=== PATIENT | female | born 1930 | race Caucasian/White ===

== ENCOUNTER → 2020-03-08 | Outpatient (CLI) | payer MEDICARE, OTHER | LOC: M LABSMTC 09:47 | PROVIDERS: ATTEND Internal Medicine Cardiovascular Disease | DX: Z20.828 Contact with and (suspected) exposure to other viral communicable diseases (principal) | CPT/HCPCS: C9803; U0003 ==

== ENCOUNTER 2020-07-05 12:15 | Emergency (ER) | payer MEDICARE, OTHER ==
[~2020-07-05] VITALS: Ht 162.6 cm; Wt 77.3 kg
[2020-07-05 13:14] LABS: BASO % 0.5 % (0.0-1.0); EOS # 0.2 10^3/uL (0.0-0.5); EOS % 3.4 % (0.0-3.0); HEMATOCRIT 38.3 % (36.0-47.0); HEMOGLOBIN 11.7 g/dl (12.0-15.5); LYMPH # 1.1 10^3/uL (1.5-5.0); LYMPH % 17.9 % (24.0-44.0); MEAN CORPUSCULAR HEMOGLOBIN 27.1 pg (27.0-33.0); MEAN CORPUSCULAR HGB CONC 30.5 g/dl (32.0-36.5); MEAN CORPUSCULAR VOLUME 88.7 fl (80.0-96.0); MONO # 0.7 10^3/uL (0.0-0.8); NEUTROPHILS # 4.1 10^3/uL (1.5-8.5); NEUTROPHILS % 66.9 % (36.0-66.0); PLATELET COUNT, AUTOMATED 277 10^3/uL (150-450); RED BLOOD COUNT 4.32 10^6/uL (4.00-5.40); WHITE BLOOD COUNT 6.2 10^3/uL (4.0-10.0)
[2020-07-05 13:30] LABS: INR 1.2; PROTHROMBIN TIME 15.5 SECONDS (12.5-14.3)
[2020-07-05 13:31] LABS: PARTIAL THROMBOPLASTIN TIME 47.5 SECONDS (24.2-38.5)
--- NOTE | 2020-07-05 13:36 | REP ---
INDICATION: CHEST PAIN COMPARISON: None. TECHNIQUE: Portable AP view of the chest FINDINGS: Cardiomegaly is appreciated. Lung clancy demonstrate diffusely increased markings which may reflect pulmonary vascular congestion. Blunting to the right costophrenic angle suggests small pleural effusion. No focal consolidation. No pneumothorax. Skeletal structures demonstrate age-related osteopenia and degenerative changes. IMPRESSION: Cardiomegaly and findings to suggest pulmonary vascular congestion/early CHF including small right pleural effusion. <Electronically signed by Adrian Rinaldi > 07/05/20 [id number]
[2020-07-05] MEDS ORDERED: ISOVUE-370 76% 100ML VIAL As Ordered ONE (13:44)
[2020-07-05 14:01] LABS: ALBUMIN 3.9 GM/DL (3.2-5.2); ALT/SGPT 15 U/L (12-78); BILIRUBIN,DIRECT 0.3 MG/DL (0.0-0.2); BILIRUBIN,TOTAL 0.8 MG/DL (0.2-1.0); CK-MB VALUE MASS 1.4 NG/ML (<3.6); CPK CREATINE PHOSPHOKINASE 46 U/L (26-192); LIPASE 153 U/L (73-393); MB/CK RELATIVE INDEX 3.04 (< OR =4); NT-PRO BNP 4341 PG/ML (<450); THYROID STIMULATING HORMONE 0.831 uIU/ML (0.358-3.740); TOTAL PROTEIN 6.9 GM/DL (6.4-8.2); TROPONIN I < 0.02 NG/ML (< 0.10)
--- NOTE | 2020-07-05 14:11 | REP ---
INDICATION: fall injury; head and chest pain; pain to left ant chest. COMPARISON: None. TECHNIQUE: Helical scanning is acquired. 5 mm axial images were reformatted. Coronal MPR images were generated. FINDINGS: Bone window settings demonstrate an intact bony calvarium. There is no evidence of skull fracture or incidental bony calvarial lesion. The visualized paranasal sinuses appear clear. No intraorbital abnormality is seen. On soft tissue window setting images; the lateral, third, and fourth ventricles are normal in size and position. Arteaga-white differentiation pattern is normal above and below the tentorium. There are is no evidence of intracranial hemorrhage. No mass, edema, infarction, or midline shift is seen. No extra-axial fluid collection is appreciated. There is fairly extensive vascular calcification in the distal internal carotid arteries. There is mild generalized volume loss. Small vessel atherosclerotic changes are noted in the supratentorial brain. IMPRESSION: Generalized volume loss and vascular calcification. Small vessel changes. No acute intracranial abnormality.. <Electronically signed by Yong An > 07/05/20 [id number]
--- NOTE | 2020-07-05 14:12 | REP ---
INDICATION: fall injury; head and chest pain; pain to left ant chest COMPARISON: None TECHNIQUE: Axial contrast enhanced images from the thoracic inlet to the upper abdomen with coronal and sagittal reformations using 75 ml Isovue 370 intravenous contrast material. This CT examination was performed using the following dose reduction techniques: Automated exposure control, adjustment of mA and/or kv according to the patient's size, and use of iterative reconstruction technique. FINDINGS: Cardiomegaly is appreciated with small pericardial effusion and small right pleural effusion partially identified within the apical portion of the major fissure with trace right basilar atelectasis. Further evaluation of the mediastinum demonstrates atherosclerotic changes to the thoracic aorta and coronary arteries without aortic aneurysm or dissection. No significant adenopathy. Musculoskeletal structures demonstrate age-related changes without acute osseous abnormality. Limited upper abdomen demonstrates normal bilateral adrenal glands and 2 cm left renal cyst. IMPRESSION: 1. Cardiomegaly with small amount of pericardial fluid. 2. Small right pleural effusion and minimal right basilar atelectasis. <Electronically signed by Adrian Rinaldi > 07/05/20 [id number]
--- NOTE | 2020-07-05 14:13 | REP ---
INDICATION: fall injury; head and chest pain; pain to left ant chest. COMPARISON: None. TECHNIQUE: Helical scanning is acquired and overlapping 2 mm high resolution axial images were generated and reviewed at bone and soft tissue window settings. Coronal and sagittal multiplanar re-formations images are generated. FINDINGS: There is no evidence of cervical spine element fracture. No skull base fracture is seen. Cervical vertebral body heights are preserved. Alignment is normal. Facet joints are normally aligned bilaterally at each cervical level on multiplanar re-formations images. There is no evidence of intraspinal or paraspinal hematoma. No extra vertebral abnormality is seen. There is moderate degenerative disc disc disease at each level from C3-4 through C6-7. This is most pronounced at C5-6. 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 There are dystrophic calcifications in the right thyroid and vascular calcification is noted. IMPRESSION: Degenerative spondylosis changes. No traumatic abnormality.. <Electronically signed by Yong An > 07/05/20 [id number]
[2020-07-05] MEDS ORDERED: ACETAMINOPHEN 325 MG TAB PO ONE (14:45)
[2020-07-05 15:00] VITALS: BP 169/71
--- NOTE | 2020-07-05 21:42 | ECGEPIP ---
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
== END 2020-07-05 15:25 | disposition home or self-care (01) ==
LOC: M ED 12:15
DX: S09.90XA Unspecified injury of head, initial encounter (principal); W19.XXXA Unspecified fall, initial encounter; Y92.9 Unspecified place or not applicable; Y93.9 Activity, unspecified; Y99.9 Unspecified external cause status; J91.8 Pleural effusion in other conditions classified elsewhere; I11.9 Hypertensive heart disease without heart failure; Z95.0 Presence of cardiac pacemaker
CPT/HCPCS: 36415; 70450; 71045; 71260; 72125; 80047; 80076; 82550; 82553; 83690; 83880; 84443; 84484; 85025; 85610; 85730; 93005; 93041; 94760; 99285; Q9967

== ENCOUNTER → 2020-11-14 | Outpatient (CLI) | payer MEDICARE, OTHER ==
[2020-11-14 11:35] LABS: HEMATOCRIT 39.9 % (36.0-47.0); HEMOGLOBIN 12.2 g/dl (12.0-15.5); MEAN CORPUSCULAR HEMOGLOBIN 26.7 pg (27.0-33.0); MEAN CORPUSCULAR HGB CONC 30.6 g/dl (32.0-36.5); MEAN CORPUSCULAR VOLUME 87.3 fl (80.0-96.0); PLATELET COUNT, AUTOMATED 293 10^3/uL (150-450); RED BLOOD COUNT 4.57 10^6/uL (4.00-5.40); WHITE BLOOD COUNT 7.4 10^3/uL (4.0-10.0)
[2020-11-14 12:01] LABS: BILIRUBIN,TOTAL 1.2 MG/DL (0.2-1.0); CALCIUM LEVEL 9.4 MG/DL (8.8-10.2); CHOLESTEROL RISK RATIO 2.141 (<5); CREATININE FOR GFR 1.12 MG/DL (0.55-1.30); GLOMERULAR FILTRATION RATE 48.8 (>32); HEMOGLOBIN A1c 6.1 %; MAGNESIUM LEVEL 2.1 MG/DL (1.8-2.4); POTASSIUM SERUM 4.2 MEQ/L (3.5-5.1); THYROID STIMULATING HORMONE 3.31 uIU/ML (0.358-3.740); THYROXINE (T4) 9.9 UG/DL (4.5-12.0); TOTAL PROTEIN 7.2 GM/DL (6.4-8.2)
== END ==
LOC: M LAB 09:54
PROVIDERS: ATTEND Internal Medicine Cardiovascular Disease
DX: D64.9 Anemia, unspecified (principal); E11.9 Type 2 diabetes mellitus without complications; E78.5 Hyperlipidemia, unspecified

== ENCOUNTER 2020-11-26 17:39 | Emergency (ER) | payer MEDICARE, OTHER ==
[~2020-11-26] VITALS: Ht 167.6 cm; Wt 75.5 kg
[2020-11-26] MEDS ORDERED: MECLIZINE 25 MG TABLET PO ONE (19:30)
--- NOTE | 2020-11-26 20:34 | REPVR ---
PROCEDURE INFORMATION: Exam: CT Head Without Contrast Exam date and time: 11/26/2020 7:36 PM Age: 89 years old Clinical indication: Other: AMS; Additional info: Altered mental status TECHNIQUE: Imaging protocol: Computed tomography of the head without contrast. Radiation optimization: All CT scans at this facility use at least one of these dose optimization techniques: automated exposure control; mA and/or kV adjustment per patient size (includes targeted exams where dose is matched to clinical indication); or iterative reconstruction. COMPARISON: CT Head without contrast 07/05/2020 1:44 PM FINDINGS: Brain: There is cerebral atrophy and changes of chronic white matter microvascular disease. No signs of a recent infarction or hemorrhage. No midline shift or mass effect. Cerebral ventricles: No ventriculomegaly. Paranasal sinuses: Visualized sinuses are unremarkable. No fluid levels. Mastoid air cells: Visualized mastoid air cells are well aerated. Bones/joints: Unremarkable. No acute fracture. Soft tissues: Unremarkable. IMPRESSION: Atrophy and chronic white matter changes. No acute intracranial abnormality. Electronically signed by: Magan Moore On 11/26/2020 20:33:28 PM
[2020-11-26 20:46] LABS: BASO % 0.5 % (0.0-1.0); EOS # 0.2 10^3/uL (0.0-0.5); EOS % 2.3 % (0.0-3.0); HEMATOCRIT 40.7 % (36.0-47.0); HEMOGLOBIN 12.5 g/dl (12.0-15.5); LYMPH # 1.1 10^3/uL (1.5-5.0); LYMPH % 17.5 % (24.0-44.0); MEAN CORPUSCULAR HEMOGLOBIN 26.3 pg (27.0-33.0); MEAN CORPUSCULAR HGB CONC 30.7 g/dl (32.0-36.5); MEAN CORPUSCULAR VOLUME 85.7 fl (80.0-96.0); MONO # 0.7 10^3/uL (0.0-0.8); MONO % 10.6 % (2.0-8.0); NEUTROPHILS # 4.5 10^3/uL (1.5-8.5); NEUTROPHILS % 68.5 % (36.0-66.0); PLATELET COUNT, AUTOMATED 281 10^3/uL (150-450); RED BLOOD COUNT 4.75 10^6/uL (4.00-5.40); WHITE BLOOD COUNT 6.5 10^3/uL (4.0-10.0)
--- NOTE | 2020-11-26 20:48 | REPVR ---
PROCEDURE INFORMATION: Exam: XR Chest Exam date and time: 11/26/2020 8:22 PM Age: 89 years old Clinical indication: Other: AMS; Additional info: Altered mental status TECHNIQUE: Imaging protocol: XR of the chest. Views: 1 view. COMPARISON: CT Chest with contrast 07/05/2020 1:44 PM FINDINGS: Lungs: Mild interstitial scarring. No airspace consolidation or masses. Pleural spaces: No pleural effusion. No pneumothorax. Heart/Mediastinum: Stable cardiomegaly. Bones/joints: Skeletal degenerative changes are noted. Left shoulder arthroplasty in normal alignment. IMPRESSION: 1. Cardiomegaly. 2. No acute findings. Electronically signed by: Magan Moore On 11/26/2020 20:48:14 PM
[2020-11-26 21:32] LABS: ACETAMINOPHEN LEVEL < 2.0 UG/ML (10.0-30.0); ALBUMIN 4.1 GM/DL (3.2-5.2); ALT/SGPT 17 U/L (12-78); BILIRUBIN,DIRECT 0.3 MG/DL (0.0-0.2); BILIRUBIN,TOTAL 0.8 MG/DL (0.2-1.0); BLOOD UREA NITROGEN 35 MG/DL (7-18); CALCIUM LEVEL 9.9 MG/DL (8.8-10.2); CARBON DIOXIDE LEVEL 30 MEQ/L (21-32); CHLORIDE LEVEL 101 MEQ/L (98-107); CREATININE FOR GFR 1.18 MG/DL (0.55-1.30); GLOMERULAR FILTRATION RATE 45.9 (>32); GLUCOSE, FASTING 104 MG/DL (70-100); POTASSIUM SERUM 4.2 MEQ/L (3.5-5.1); SALICYLATE LEVEL < 1.7 MG/DL (5.0-30.0); SODIUM LEVEL 139 MEQ/L (136-145); TOTAL PROTEIN 7.6 GM/DL (6.4-8.2)
[2020-11-26] MEDS ORDERED: MECL-86 PO (21:37)
[2020-11-26 22:05] VITALS: BP 145/70
--- NOTE | 2020-11-27 20:45 | ECGEPIP ---
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
== END 2020-11-27 01:00 | disposition home or self-care (01) ==
LOC: M ED 17:39
DX: R42 Dizziness and giddiness (principal); I11.9 Hypertensive heart disease without heart failure; Z95.0 Presence of cardiac pacemaker; Z87.891 Personal history of nicotine dependence; Z79.899 Other long term (current) drug therapy